=== PATIENT | male | born 1940 | race Caucasian/White ===

== ENCOUNTER 2016-03-19 11:33 | Inpatient (IN) | payer OTHER ==
--- NOTE | 2016-03-19 11:43 | EDPHY ---
H & P Stated Complaint: Left flank pain Time Seen by Provider: 03/19/16 11:42 - Personal History Current Tetanus/Diphtheria Vaccine: Yes Current Tetanus Diphtheria and Acellular Pertussis (TDAP): Yes - Medical/Surgical History Hx Asthma: No Hx Chronic Respiratory Disease: No Hx Diabetes: No Hx Cardiac Disease: No Hx Renal Disease: No Hx Cirrhosis: No Hx Alcoholism: No Hx HIV/AIDS: No Hx Splenectomy or Spleen Trauma: No Other PMH: skin ca, ulcers, kidney stones, vertigo - Social History Smoking Status: Never smoked Constitutional: Initial Vital Signs Temperature (C) 36.9 C 03/19/16 11:41 Heart Rate 80 03/19/16 11:41 Respiratory Rate 14 03/19/16 11:41 Blood Pressure 129/76 H 03/19/16 11:41 O2 Sat (%) 96 03/19/16 11:41 O2 Delivery Mode Room Air Allergies/Adverse Reactions: Penicillins Allergy (Unknown, Verified 03/19/16 11:40) Home Medications: Medication Instructions Recorded Prozac Oral Liquid (RX) 09/20/14 Medical Decision Making ED Course/Re-evaluation: CHIEF COMPLAINT: Left flank pain HISTORY OF PRESENT ILLNESS: 75-year-old gentleman who is a woken from sleep at about 6 o'clock this morning with left flank pain radiating down toward the groin at times. The pain is intermittent in severity but never goes away completely. He had a kidney stone 12 years ago and he thinks this feels exactly the same. He denies any recent trauma. He denies any fevers or chills. He denies any urinary symptoms urinary retention. REVIEW OF SYSTEMS: A 10 point review of systems was performed and is negative with the exception of the elements mentioned in the history of present illness. PHYSICAL EXAM: HR, BP, O2 Sat, RR. Temp noted General Appearance: Alert, well hydrated, appropriate, and non-toxic appearing. Head: Atraumatic without scalp tenderness or obvious injury Eyes: Pupils equal, round, reactive to light and accommodation, EOMI, no trauma , no injection. Ears: Clear bilaterally, no perforation, normal landmarks Nose: Atraumatic, no rhinorrhea, clear. Throat: There is no erythema or exudates, no lesions, normal tonsils, mucus membranes moist. Neck: Supple, 2+ carotid upstroke, nontender, no lymphadenopathy. Respiratory: No retractions, no distress, no wheezes, and no accessory muscle use. Lungs are clear to auscultation bilaterally. Cardiovascular: Regular rate and rhythm, no murmurs, rubs, or gallops. Bilateral carotid, radial, dorsalis pedis, and posterior tibial pulses intact. Good capillary refill all extremities. Gastrointestinal: Abdomen is soft, nontender, non-distended, no masses, no rebound, no guarding, no peritoneal signs. Musculoskeletal: Normal active ROM of all extremities, atraumatic. Neurological: Alert, appropriate, and interactive. The patient has normal DTRs and non-focal cranial nerves, motor, sensory, and cerebellar exam. Skin: No rashes, good turgor, no nodules on palpation. Past medical history: Kidney stones Past surgical history: Noncontributory Family history: Noncontributory Social history: Retired, does not abuse tobacco drugs or alcohol DIAGNOSTICS/PROCEDURES/CRITICAL CARE TIME: Study: CT of the abdomen without contrast Indication: left flank pain consistent with kidney stone Results: CT scan of the abdomen and pelvis was obtained. The results of the study are 8 x 6 mm very proximal left kidney stone with moderate hydronephrosis The study was read by the radiologist, Dr. Tristan Israel. I viewed the images myself on the PACS system. DIFFERENTIAL DIAGNOSIS: The differential diagnosis for the patient's flank pain included but was not limited to musculoskeletal causes, kidney stone, pyelonephritis, shingles, diverticulitis, appendicitis, and aortic aneurysm. MEDICAL DECISION MAKING: This patient is having left-sided flank pain that he believes the same is a kidney stone he had 12 years ago. I have given him 30 mg of ketorolac, 1 mg of Dilaudid, Zofran and fluids. Laboratory studies including urinalysis are pending and will perform a noncontrast CT scan which is pending. Patient is comfortable. Although this patient has a few white cells in his urine I believe the based on the significant number of red cells this is not a urinary tract infection. This patient has a fairly large and proximal kidney stone. Retching difficulty controlling his pain. I will discuss with him admitting him for pain control and Urology consult. I spoke to the hospitalist and to the urologist. Everyone is in agreement will admit the patient neurology Dr. uSpa parra will consult - Data Points Laboratory Results: Laboratory Results 03/19/16 11:35 03/19/16 11:35 03/19/16 03/19/16 11:50 11:35 WBC 9.37 10^3/uL (3.80-9.50) RBC 5.26 10^6/uL (4.40-6.38) Hgb 16.7 g/dL (13.7-17.5) Hct 48.9 % (40.0-51.0) MCV 93.0 fL (81.5-99.8) MCH 31.7 pg (27.9-34.1) MCHC 34.2 g/dL (32.4-36.7) RDW 12.5 % (11.5-15.2) Plt Count 266 10^3/uL (150-400) MPV 10.0 fL (8.7-11.7) Neut % (Auto) 60.3 % (39.3-74.2) Lymph % (Auto) 30.5 % (15.0-45.0) [place] % (Auto) 7.6 % (4.5-13.0) Eos % (Auto) 0.9 % (0.6-7.6) Baso % (Auto) 0.4 % (0.3-1.7) Nucleat RBC Rel Count 0.0 % (0.0-0.2) Absolute Neuts (auto) 5.65 10^3/uL (1.70-6.50) Absolute Lymphs (auto) 2.86 10^3/uL (1.00-3.00) Absolute Monos (auto) 0.71 10^3/uL (0.30-0.80) Absolute Eos (auto) 0.08 10^3/uL (0.03-0.40) Absolute Basos (auto) 0.04 10^3/uL (0.02-0.10) Absolute Nucleated RBC 0.00 10^3/uL (0-0.01) Immature Gran % 0.3 % (0.0-1.1) Immature Gran # 0.03 10^3/uL (0.00-0.10) Sodium 142 mEq/L (134-144) Potassium 4.7 mEq/L (3.5-5.2) Chloride 105 mEq/L (97-110) Carbon Dioxide 27 mEq/l (22-31) Anion Gap 10 mEq/L (8-16) BUN 15 mg/dL (7-23) Creatinine 1.0 mg/dL (0.7-1.3) Estimated GFR > 60 Glucose 110 H mg/dL (70-100) Calcium 9.2 mg/dL (8.5-10.4) Urine Color YELLOW Urine Appearance HAZY Urine pH 8.0 H (5.0-7.5) Ur Specific [place] 1.018 (1.002-1.030) Urine Protein 1+ H (NEGATIVE) Urine Ketones NEGATIVE (NEGATIVE) Urine Blood 3+ H (NEGATIVE) Urine Nitrate NEGATIVE (NEGATIVE) Urine Bilirubin NEGATIVE (NEGATIVE) Urine Urobilinogen NEGATIVE EU (0.2-1.0) Ur Leukocyte Esterase NEGATIVE (NEGATIVE) Urine RBC 50-182 H /hpf (0-3) Urine WBC 5-10 H /hpf (0-3) Ur Epithelial Cells NONE SEEN /lpf (NONE-1+) Urine Mucus TRACE /lpf (NONE-1+) Ur Culture Indicated? INDICATED H (NI) Urine Glucose NEGATIVE (NEGATIVE) Medications Given: Discontinued Medications Hydromorphone HCl (Dilaudid) 1 mg IVP EDNOW ONE Stop: 03/19/16 11:47 Last Admin: 03/19/16 12:35 Dose: 1 mg Sodium Chloride (Ns) 1,000 mls @ 0 mls/hr IV ONCE ONE PRN Reason: Wide Open Stop: 03/19/16 11:46 Last Admin: 03/19/16 12:20 Dose: 1,000 mls Ketorolac Tromethamine (Toradol) 30 mg IVP EDNOW ONE Stop: 03/19/16 11:46 Last Admin: 03/19/16 12:20 Dose: 30 mg Departure - Departure Disposition: [facility] Clinical Impression: Renal colic on left side Urolithiasis Qualifiers: Urinary calculus location: upper urinary tract Qualifier Code: (N20.9) Urinary calculus, unspecified Condition: Fair
[2016-03-19] MEDS ORDERED: NS 1,000 ML IV ONE (11:45)
[2016-03-19] MEDS ORDERED: KETOROLAC 30 MG/1 ML SDV IVP ONE (11:45)
[2016-03-19] MEDS ORDERED: HYDROmorphONE/DILAUDID 1 MG/ML SYR IVP ONE ×3 (11:46→13:28)
[2016-03-19 11:50] LABS: % IMMATURE GRANULYOCYTES 0.3 % (0.0-1.1); ABSOLUTE IMMATURE GRANULOCYTES 0.03 10^3/uL (0.00-0.10); ADD DIFF? NO; ADD MORPH? NO; ADD SCAN? NO; ATYPICAL LYMPHOCYTE FLAG 0 (0-99); FRAGMENT RBC FLAG 0 (0-99); HEMATOCRIT 48.9 % (40.0-51.0); HEMOGLOBIN 16.7 g/dL (13.7-17.5); LEFT SHIFT FLG 0 (0-99); LIPEMIA HEMOLYSIS FLAG 90 (0-99); MEAN CELL HEMOGLOBIN 31.7 pg (27.9-34.1); MEAN CELL HEMOGLOBIN CONCENTR. 34.2 g/dL (32.4-36.7); PLATELET CLUMPS FLAG 10 (0-99); PLATELET COUNT 266 10^3/uL (150-400); RED BLOOD CELL COUNT 5.26 10^6/uL (4.40-6.38); RED CELL DISTRIBUTION WIDTH 12.5 % (11.5-15.2)
[2016-03-19 11:59] LABS: ANION GAP 10 mEq/L (8-16); CALCIUM 9.2 mg/dL (8.5-10.4); CARBON DIOXIDE 27 mEq/l (22-31); CHLORIDE 105 mEq/L (97-110); GLOMERULAR FILTRATION RATE > 60; GLUCOSE 110 mg/dL (70-100); POTASSIUM 4.7 mEq/L (3.5-5.2); SODIUM 142 mEq/L (134-144)
[2016-03-19 12:02] LABS: COLOR YELLOW; LEUKOCYTE ESTERASE,URINE NEGATIVE (NEGATIVE); NITRITE,URINE NEGATIVE (NEGATIVE)
[2016-03-19 12:11] LABS: MUCUS TRACE /lpf (NONE-1+); RBC,URINE 50-182 /hpf (0-3)
[2016-03-19] MEDS ORDERED: HYDROmorphONE/DILAUDID 1 MG/ML SYR ONE ×2 (13:12→13:22)
[2016-03-19] MEDS ORDERED: ONDANSETRON 4 MG/2 ML VIAL ONE (13:15)
[2016-03-19] MEDS ORDERED: ONDANSETRON DISINTEGRATING 4 MG TAB PO PRN (13:31)
[2016-03-19] MEDS ORDERED: ACETAMINOPHEN 325 MG TAB PO PRN (13:31)
[2016-03-19] MEDS ORDERED: ONDANSETRON 4 MG/2 ML VIAL IVP PRN (13:31)
--- NOTE | 2016-03-19 13:41 | CT ---
CT Abdomen and Pelvis (Without Contrast) at 1248 hours History: Left flank pain. Technique: Spiral images were acquired from the upper abdomen through the pelvis without intravenous or oral contrast, which limits the study. Dose reduction techniques were utilized. Findings: Abdomen: Moderate left hydroureteronephrosis, secondary to an 8 x 6 mm calculus in the proximal left ureteropelvic junction at the L2-L3 disk level with additional nonobstructing 2-mm calculus in the lo wer pole calyx left kidney. Right kidney demonstrates four nonobstructing 1 to 4 mm calculi. No right hydronephrosis. Moderate atherosclerotic calcification of the aorta and iliac arteries with ectasia of the right comm on iliac artery up to 1.6 cm. No abdominal aortic aneurysm. Multiple hepatic cysts, especially in the left lobe. No splenomegaly. No peripancreatic fluid. No bow el obstruction.. Pelvis: In the distal left ureter, there is a 2-mm calculus also noted. Sigmoid diverticulosis witho ut diverticulitis. No bladder calculi. Severe degenerative disk disease in the lumbar spine at L4-L5 and L5-S1 with associated moderate facet arthropathy resulting in mild to moderate central canal sten osis, worst at the L4-L5 level. Impression: 1. Moderate left hydronephrosis secondary to an 8 x 6 mm obstructing calculus and proximal left urete ropelvic junction. Additional 2-mm distal left ureteral calculus. 2. Additional calyceal calculus left kidney. 3. Nonobstructive right nephrolithiasis. 4. Atherosclerotic aorta and iliac arteries with ectatic right common iliac artery 1.6 cm. 5. Sigmoid diverticulosis without diverticulitis. Attention: This CT examination is specifically designed to evaluate patients who are clinically susp ected of having acute obstructive uropathy. This examination does not use radiographic contrast, and as such, provides only a limited evaluation of the abdomen, pelvis and retroperitoneum. If there is further clinical suspicion for pathological conditions other than obstructive uropathy, a complete C T evaluation of the abdomen and pelvis utilizing intravenous, oral, and rectal contrast should be con sidered. Findings and recommendations discussed with Emergency Department physician, Dr. Dom Almeida at 1305 hours today. Final report concurs with initial preliminary interpretation.
[2016-03-19] MEDS ORDERED: NS 1,000 ML IV SCH (13:45)
[2016-03-19] MEDS ORDERED: TAMSULOSIN HCL 0.4 MG CAP PO SCH (14:00)
[2016-03-19] MEDS ORDERED: CAFFEINE PO PRN ×2 (15:28→18:18)
[2016-03-19] MEDS ORDERED: CALCIUM CARBONATE 500 MG CHEWABLE TAB PO PRN (15:28)
[2016-03-19] MEDS ORDERED: ACETAMINOPHEN PO PRN ×2 (15:28→18:18)
--- NOTE | 2016-03-19 15:58 | GHP ---
[f rep st] HISTORY AND PHYSICAL DATE OF ADMISSION: 03/19/2016 CHIEF COMPLAINT: Flank pain. HISTORY OF PRESENT ILLNESS: A 75-year-old male with a history of a previous kidney stone approximate ly 10 years previous that passed on its own, who presents with sudden onset of left-sided flank pain the morning of presentation. Patient reports at about 7 a.m. noting some discomfort in the flank, wh ich was familiar to him from his previous stone 10 years ago. Pain grew in intensity, developed naus ea, no vomiting. Waited, hydrated himself, passed multiple stools, thinking hopefully that this woul d make the pain go away. In fact, the pain progressed in intensity until he needed assistance in the emergency department. In the ED, he denies any chest pain, any shortness of breath. Does report daily headaches, which hav e been unchanged. Denies any dysuria or hematuria. Marked pain of the left flank that radiates to h is left anterior abdomen. The patient had multiple soft stools this morning. Denies any preceding d iarrhea. Reports nausea, but no vomiting. PAST MEDICAL HISTORY: 1. Spontaneously passed kidney stone approximately 10 years ago. 2. Two episodes of situational grief with the passing of his and his daughter. 3. Daily headaches. SOCIAL HISTORY: Negative for tobacco, alcohol. Does use smokeless tobacco occasionally. Denies any marijuana or illicit drugs. FAMILY HISTORY: Positive for nephrolithiasis in his son. ADVANCED DIRECTIVE: The patient is full cor, full tube. His son would be his medical decision maker . REVIEW OF SYSTEMS: A 10-point review of systems is negative with the exception I reported in the HPI . PHYSICAL EXAMINATION: VITAL SIGNS: Blood pressure is 139/79, heart rate 78, respiratory rate 14, 94 % on 2 L, 36.9. GENERAL: This is a pleasant-appearing middle-aged male in no acute distress. HEENT : Notable for moist mucous membranes. Eye exam is negative for any icterus. CARDIAC: The patient is regular rate and rhythm. PULMONARY: Good respiratory effort, clear to auscultation bilaterally. GASTROINTESTINAL: Abdomen is soft, has positive bowel sounds. He is tender to palpation at the lef t flank. No rebound or guarding. MUSCULOSKELETAL: Negative for any lower extremity edema. SKIN: Negative for any rashes. NEUROLOGIC: He is alert and oriented x3. PSYCHIATRIC: He is very pleasan t and cooperative on interview and examination. DIAGNOSTIC DATA: CT of the abdomen, which I personally reviewed and interpreted, shows an 8 x 6 mm s tone at the proximal left ureteropelvic junction with moderate left-sided hydronephrosis. There is a n additional, small, 2 mm stone seen more distally in the left ureter. LABORATORY DATA: White count 9.3. Creatinine 1.0, sodium 142, potassium 4.7. Urinalysis shows 50-1 82 red blood cells, 5-10 white with a pH of 8.0. ASSESSMENT AND PLAN: This is a 75-year-old male presenting with obstructing left-sided ureterolithia sis. 1. Acute obstructing left ureterolithiasis. Will treat the patient with IV fluids, IV pain medicati ons, tamsulosin. Dr. Valadez from Urology has been consulted and will see the patient. Suspects he w ill require stenting if not lithotripsy. 2. Obstructing stone. The patient does have visualized hydronephrosis with normal renal function, c reatinine of 1.0. Will aggressively hydrate and follow his BMP. 3. Acute hematuria secondary to ureterolithiasis. The patient does have a few white blood cells, wh ich I do not believe is consistent with acute infection. Will not treat with antibiotics. 4. Prophylaxis with SCDs as the surgical plan has not been clarified. DIET: Regular, n.p.o. after midnight. DISPOSITION: I expect greater than 2 midnights as patient is requiring IV pain medications and likel y intervention for his obstructing left-sided ureteral stone. I have discussed the case with the emergency room physician. [facility]. /[id number]/MODL
[2016-03-19] MEDS: KETOROLAC 30 MG/1 ML SDV IVP PRN (16:31)
--- NOTE | 2016-03-20 00:07 | SOAPPROG ---
[facility] Progress Note Assessment/Plan: Assessment: Multiple left ureteral calculi. See dictated consult note (# [id number]). Plan: OR in AM. Hopeful discharge sometime on Fri. Objective: Vital Signs Temp Pulse Resp BP Pulse Ox 36.6 C 109 H 18 98/68 L 90 L 03/19/16 20:00 03/19/16 20:00 03/19/16 20:00 03/19/16 20:00 03/19/16 20:00 03/18/16 03/19/16 03/20/16 05:59 05:59 05:59 Intake Total 1750 Balance 1750 ICD10 Worksheet Patient Problems: Problems Problem Status Diagnosed Renal colic on left side Acute Urolithiasis Acute
[2016-03-20 05:18] LABS: % IMMATURE GRANULYOCYTES 0.1 % (0.0-1.1); ABSOLUTE IMMATURE GRANULOCYTES 0.01 10^3/uL (0.00-0.10); ADD DIFF? NO; ADD MORPH? NO; ADD SCAN? NO; ATYPICAL LYMPHOCYTE FLAG 0 (0-99); FRAGMENT RBC FLAG 0 (0-99); HEMATOCRIT 41.3 % (40.0-51.0); HEMOGLOBIN 13.6 g/dL (13.7-17.5); LEFT SHIFT FLG 0 (0-99); LIPEMIA HEMOLYSIS FLAG 80 (0-99); MEAN CELL HEMOGLOBIN 31.2 pg (27.9-34.1); MEAN CELL HEMOGLOBIN CONCENTR. 32.9 g/dL (32.4-36.7); MEAN CELL VOLUME 94.7 fL (81.5-99.8); MEAN PLATELET VOLUME 9.9 fL (8.7-11.7); PLATELET CLUMPS FLAG 0 (0-99); PLATELET COUNT 203 10^3/uL (150-400); RED BLOOD CELL COUNT 4.36 10^6/uL (4.40-6.38); RED CELL DISTRIBUTION WIDTH 12.5 % (11.5-15.2)
[2016-03-20 05:37] LABS: ANION GAP 6 mEq/L (8-16); CALCIUM 7.9 mg/dL (8.5-10.4); CARBON DIOXIDE 26 mEq/l (22-31); CHLORIDE 110 mEq/L (97-110); CREATININE 1.3 mg/dL (0.7-1.3); GLOMERULAR FILTRATION RATE 54; GLUCOSE 98 mg/dL (70-100); POTASSIUM 4.6 mEq/L (3.5-5.2); SODIUM 142 mEq/L (134-144)
[2016-03-20] MEDS ORDERED: LIDOCAINE 2% JELLY 20 ML (UROJECT) ONE (06:54)
[2016-03-20] MEDS ORDERED: IOPAMIDOL (ISOVUE-M 300) 15 ML VIAL IV ONE ×3 (06:55→07:58)
[2016-03-20] MEDS ORDERED: fentaNYL 100 MCG/2 ML INJ ONE (07:09)
[2016-03-20] MEDS ORDERED: PROPOFOL 200 MG/20 ML VIAL ONE ×2 (07:09)
[2016-03-20] MEDS ORDERED: MIDAZOLAM 2 MG/2 ML VIAL ONE (07:12)
[2016-03-20] MEDS ORDERED: LIDOCAINE 2% 100 MG/5 ML SYR IVP ONE (07:12)
[2016-03-20] MEDS ORDERED: ROCURONIUM 50 MG/5 ML VIAL ONE (07:12)
[2016-03-20] MEDS ORDERED: levOFLOXACIN 500 MG/DEXTROSE 100 ML IV ONE (07:15)
[2016-03-20] MEDS ORDERED: SUGAMMADEX SODIUM 200 MG/2 ML VIAL IVP ONE (07:49)
[2016-03-20] MEDS ORDERED: KETOROLAC 30 MG/1 ML SDV ONE (07:49)
[2016-03-20] MEDS ORDERED: ONDANSETRON 4 MG/2 ML VIAL ONE (07:49)
[2016-03-20] MEDS ORDERED: DEXAMETHASONE 4 MG/ML VIAL ONE (07:49)
--- NOTE | 2016-03-20 08:41 | POSTOPPROG ---
Post Op Note Date of Operation: 03/20/16 Surgeon: Estela Valadez (# [id number]) Anesthesia: GET(General Endotracheal) Pre-op Diagnosis: Multiple left ureteral calculi Post-op Diagnosis: Left renal calculus Procedure: Cysto, left RGP, ureteroscopy/nephroscopy w/ laser litho Findings: See op note Inf/Abcess present in the surg proc area at time of surgery?: No EBL: Minimal (< 10 cc) Complications: None Drains: Other (4.7 Fr. x 24 cm Left ureteral stent) Specimen(s): None Text Box - Additional Text Additional Text: To RR in stable condition
--- NOTE | 2016-03-20 08:57 | GCON ---
[f rep st] CONSULTATION UROLOGY CONSULTATION NOTE. DATE OF CONSULTATION: 03/19/2016 PHYSICIAN REQUESTING CONSULTATION: Hospitalist service. REASON FOR CONSULTATION: Left ureteral calculi. HISTORY: This is a 75-year-old gentleman who was in his otherwise state of good health when he start ed experiencing acute onset of left-sided flank and abdominal pain earlier this morning with some ass ociated nausea. He continued to have pain to the point that he presented to the emergency room early this afternoon. He underwent CT scan evaluation and was found to have multiple left ureteral calcul i. He was admitted for further management thereafter. Since admission, his pain was relieved with p arental narcotics, and he has not had any recurrent pain in several hours. He denies any fevers or f kimmy-like symptoms, dysuria, gross hematuria. He does have 1 prior episode of nephrolithiasis which was symptomatic approximately 11 years ago and did not require treatment at that time. PAST MEDICAL HISTORY: Nephrolithiasis (as above), depression (for which he was previously taking Pro nani), chronic headaches, skin cancer. PAST SURGICAL HISTORY: None. ADMISSION MEDICATIONS: 1. Tums p.r.n. (states he uses only 2-3 times monthly). 2. Multivitamin. MEDICAL ALLERGIES: Penicillin: Unknown reaction. FAMILY HISTORY: According to review of the chart, son has had kidney stones as well. SOCIAL HISTORY: The patient is and lives in the [facility]. He denies use of tobacco, alc ohol products, or illicit drugs (including marijuana). REVIEW OF SYSTEMS: Unremarkable, other than mentioned above in the HPI and past medical history. PHYSICAL EXAMINATION: General: Well-developed, well-nourished white male, lying supine in bed, in n o acute distress. Vital signs: Blood pressure 98/68, pulse 109, respirations 18, oxygen saturation 90% on 1 L nasal cannula. Temperature 36.6 Celsius. HEENT: Normocephalic, atraumatic. Neck: Supp le. Heart: Regular rate. Chest: Unlabored respiratory pattern. Abdomen: Soft, without palpable masses. No obvious organomegaly. No flank tenderness on percussion. Genitalia: Normal phallus and scrotal structures. Extremities: Warm, without cyanosis, clubbing, nor edema. Neurologic: He is alert and oriented. Vascular: Normal femoral, dorsalis pedis, and posterior tibial pulses bilateral ly. RADIOGRAPHIC STUDIES: Noncontrast CT scan of abdomen and pelvis today: Upon my review, notable for mild left hydronephrosis to an approximately 6 x 5 x 6 mm long proximal ureteral stone at L3. There was also continued hydronephrosis down to a 2 mm left distal ureteral calculus. Additionally noted a re 2 mm right upper pole, punctate right mid pole and punctate left lower pole renal calculi. LABORATORY: Chemistry panel from today is normal, calcium 9.2, creatinine 1.0. Urinalysis notable f or 50-182 red blood cells, 5-10 white blood cells per high-power field but otherwise negative. CBC i s normal. IMPRESSION: 1. Symptomatic multiple left ureteral calculi. 2. Asymptomatic small-volume bilateral nephrolithiasis. I had an extensive discussion with the patient regarding his ureteral calculus situation, of his diag nosis of ureteral calculi and management options. It is extremely unlikely he will be able to sponta neously pass a large proximal ureteral calculus and attempted ureteroscopy with stent placement is wa rranted. The indications for this procedure, expected benefits, typical convalescence time, alternat dre, and potential risks/complications (including urinary tract infection, urinary tract scarring, i nability to remove 1 or both calculi, inability to place a stent, and possible need for further opera tive procedures) were all discussed in detail. All the patient's questions were answered to his appa rent satisfaction this evening. PLAN: 1. Continue medical management this evening with IV fluids, Flomax, and parenteral narcotics/antieme tics p.r.n. 2. We are scheduled to proceed with intraoperative cystoscopy, left retrograde pyelography, ureteros copy, attempted calculus management, and ureteral stent placement in the morning. 3. He has been made n.p.o. for surgery tomorrow and will receive a prophylactic dose of IV Levaquin in preparation for surgery. Thank you for this consultation. /[id number]/MODL
[2016-03-20] MEDS ORDERED: PHENAZOPYRIDINE HCL 200 MG TAB PO SCH (09:00)
[2016-03-20] MEDS: HYDROCODONE/APAP 5/325 TAB PO PRN ×3 (09:56→14:43)
--- NOTE | 2016-03-20 10:09 | DX ---
Fluoroscopy for Stent Placement 7:11 a.m. Indication: Left ureteral calculus. Fluoroscopy time: 60 seconds. Dose: 6.8 mGy. Technique: Single intraoperative AP view. Comparison: CT abdomen and pelvis dated March 19, 2016. Findings: A new left ureteral stent has upstream and downstream pigtails overlying the left renal pel vis and urinary bladder. No discernible residual calculi along the course of the left ureter. Large p hlebolith in the low left hemipelvis is unchanged in position. Impression: 1. New well-positioned left ureteral stent. 2. No discernible left ureteral calculi.
[2016-03-20 11:23] VITALS: BP 118/71; PULSE 98; RESP 16; TEMP 97.9; O2SAT 91
--- NOTE | 2016-03-20 11:27 | GOP ---
[f rep st] OPERATIVE REPORT DATE OF OPERATION: 03/20/2016 SURGEON: Estela Valadez MD ANESTHESIA: General endotracheal. PREOPERATIVE DIAGNOSIS: Symptomatic left ureteral calculi. POSTOPERATIVE DIAGNOSIS: Left renal pelvic calculus. PROCEDURE PERFORMED: 1. Cystourethroscopy, left retrograde pyelography. 2. Left ureteroscopy and nephroscopy with holmium laser calculus lithotripsy. 3. Left ureteral stent placement (4.7-Welsh x 24 cm). FINDINGS: Left ureteropelvic junction calculus fragmented as noted above. Distal ureteral calculus had spontaneously passed and was not visualized today. ESTIMATED BLOOD LOSS: Minimal. INDICATIONS: This gentleman was admitted yesterday with symptoms related to multiple left ureteral c alculi. He presents for operative management at this time. The indications for the procedures, as w ell as the potential risks and complications, were discussed with the patient preoperatively. He cruzito eared to understand. His questions were answered, and he wished to proceed. Written informed surgic al consent was thereafter obtained. DESCRIPTION OF PROCEDURE: The patient was brought to the operating room and administered general end otracheal anesthesia. He was carefully placed in the dorsal lithotomy position on the cystoscopic ta ble. The genital area was sterilely prepped with Betadine scrub and paint and draped in the usual st erile fashion. Cystoscopy was performed with the 30-degree and 70-degree lenses through a 22-Welsh sheath. The anterior urethra revealed mild concentric focal narrowing at the external sphincter, whi ch I was able to navigate through the scope without too much difficulty. The prostate revealed mild BPH. Examination of the bladder revealed no abnormalities. Ureteral orifices were normal in regard to shape and position along the trigone. A cone-tipped catheter was then used to perform retrograde pyelography on the left side. Under active fluoroscopy, there were no obvious filling defects within the ureter until the ureteropelvic junction was reached, at which point there appeared to be a calcu jeff with moderate hydronephrosis. I then passed a 0.035 inch angle-tipped Sensor guidewire up the le ft ureter until it was seen within the renal collecting system fluoroscopically. I then dilated the distal ureter with a 4 cm balloon by maintaining a pressure of 16 atmospheres for about 4 minutes. T rah balloon dilator was then removed. The balloon dilator and cystoscope were then removed while keep ing the guidewire in place. Semi-rigid ureteroscopy was performed alongside the guidewire. There wa s no longer a calculus seen within the distal ureter, as was noted on preoperative imaging, and it li tre had spontaneously passed. I advanced the ureteroscope into the renal collecting system, and no obvious calculus was seen. However, on fluoroscopy, a calcification was seen within the renal pelvis that could not be visualized through the semi-rigid ureteroscope. I then decided to attempt flexibl e ureteroscopy. A 0.038 Randy wire was passed through the cystoscope and advanced into the renal co llecting system. The cystoscope was withdrawn while keeping both guidewires in place. Under active fluoroscopy, a 55 cm hydrophilic ureteral access sheath was advanced over the larger guidewire until the tip of the dilator was at the ureteropelvic junction. The inner obturator and the larger guidewi re were removed, while keeping the outer ureteral access sheath and second guidewire in place. Flexi ble ureteroscopy was performed through the ureteral access sheath. The dominant calculus was seen wi thin the renal pelvis. A 200 micron holmium laser fiber was used to fragment the calculus until no p ieces appeared to be larger than 1 mm. The flexible ureteroscope and ureteral access sheath were the n removed in tandem. There was some mild mucosal disruption in the ureteropelvic junction, but other cabello the ureter looked good. The cystoscope was backloaded over the guidewire, and a 4.7-Welsh x 24 cm hydrophilic ureteral stent advanced over the guidewire until it was properly positioned as seen f luoroscopically in the kidney and cystoscopically in the bladder. The instruments were removed, and the urine return was clear at this point. Toradol 30 mg IV was administered by Anesthesia for postop erative analgesic purposes. 20 cc of 2% lidocaine was also injected transurethrally for postoperativ e dysuria. The patient was then awakened, extubated, transferred to his bed, then taken to the [facility] room. He tolerated the procedure well overall. COMPLICATIONS: None. DISPOSITION: He was transferred to the recovery room in stable condition. He may be discharged once deemed appropriate later today by the hospitalist service with instructions to return to my office i n 2 weeks for ureteral stent removal. /[id number]/MODL
[2016-03-20] MEDS: KETOROLAC 30 MG/1 ML SDV IVP PRN (13:04)
--- NOTE | 2016-03-20 15:13 | GDS ---
[f rep st] DISCHARGE SUMMARY DISCHARGE DIAGNOSIS: Nephrolithiasis with hydronephrosis, status post ureteroscopy and lithotripsy w ith ureteral stent placement. CONSULTANTS: Dr. Estela Valadez, [facility]. HOSPITAL COURSE AND STAY BY PROBLEM: Nephrolithiasis: Patient presented to the hospital 03/19/2016 with flank pain. A CT of the abdomen and pelvis was done that showed acute obstructing left ureterol ithiasis and an obstructing stone with hydronephrosis. Subsequently, the patient was taken to the op erating room on the morning of 03/20/2016, where he underwent ureteroscopy with laser lithotripsy and stent placement. Postoperatively, the patient has done well. On day of discharge, his pain is cont rolled and he has been evaluated by Dr. Valadez, who thought it was appropriate for discharge. PHYSICAL EXAM: VITAL SIGNS: Blood pressure was 118/71, pulse of 86, respiratory rate 16, O2 sat 91% on 1 L, temperature afebrile. GENERAL: No acute distress. HEART: S1, S2. LUNGS: Clear. ABDOME N: Soft. EXTREMITIES: No edema. PROCEDURES DONE THIS HOSPITAL STAY: Ureteroscopy with laser lithotripsy and ureteral stent placement done 03/20/[address] Valadez. DISCHARGE MEDICATIONS: Please refer to discharge medication reconciliation for full details. Below is a preliminary list. New medications on hospital discharge: Pyridium 200 mg p.o. t.i.d. for 2 weeks, [place] 5/25 one to 2 tablets p.o. q.4 hours p.r.n. pain, Colace 100 mg p.o. b.i.d. All other home medications were continued at his usual home dosages. DISCHARGE INSTRUCTIONS: The patient was discharged home, where he should follow up with Dr. Allyson child 2 weeks for stent removal. He is to seek medical attention if he develops any worsening pain, feve rs, or new medical problems. /[id number]/MODL
== END 2016-03-20 15:04 | disposition home or self-care (01) | DRG 694 ==
LOC: EDUNIT# → OBSVTOIN 13:33 → F1N 14:35
PROVIDERS: ADMIT Hospitalist; ATTEND Family Medicine
PROC: 0TF48ZZ Fragmentation in Left Kidney Pelvis, Via Natural or Artificial Opening Endoscopic (ICD-10-PCS; principal; 2016-03-20 07:15)
PROC: 0T777DZ Dilation of Left Ureter with Intraluminal Device, Via Natural or Artificial Opening (ICD-10-PCS; principal; 2016-03-20 07:15)
PROC: BT1F0ZZ Fluoroscopy of Left Kidney, Ureter and Bladder using High Osmolar Contrast (ICD-10-PCS; principal; 2016-03-20 07:15)
DX: N20.2 Calculus of kidney with calculus of ureter (principal); R51 Headache
CPT/HCPCS: 96374; C1758; C1769; C1894; C2625; J1100; J1170; J1885; J1956; J2001; J2250; J2405; J2704; J3010; Q9967

== ENCOUNTER → 2016-04-02 | Outpatient (CLI) | payer OTHER | LOC: FIMAGING 13:33 | PROVIDERS: ATTEND Specialist | DX: N20.0 Calculus of kidney (principal); Z96.0 Presence of urogenital implants ==